=== PATIENT | male | born 1975 | race Caucasian/White ===

== ENCOUNTER 2017-02-24 21:56 | Emergency (ER) | payer SELFPAY ==
[2017-02-24 22:06] VITALS: BP 122/85; PULSE 101; RESP 16; TEMP 98.4; O2SAT 95
--- NOTE | 2017-02-24 22:11 | EDPHY ---
H & P Stated Complaint: PARANOIA HPI/ROS: HPI CHIEF COMPLAINT: Anxiety and stress HISTORY OF PRESENT ILLNESS: This patient is a 41 y.o. old male he is otherwise healthy with no significant medical history does not have any significant medical history does not take any daily medications. No history of mental illness. Denies depression, denies want hurt himself or anybody else. He states been going through a lot of stress and anxiety recently. He states that he has had a lot of events in his life that been causing him anxiety and stress. He has been trying to cope with them. After long discussion with his mom decided come to the emergency room to have mental health resources. He again does not want harm himself or anybody else. He does not appear acutely psychotic. He is calm and cooperative. Past Medical History: No significant medical history Past Surgical History: No significant surgical history Social History: Lives locally denies drugs alcohol tobacco. Occasional marijuana Family History: Noncontributory ROS REVIEW OF SYSTEMS: A comprehensive 10 point review of systems is otherwise negative aside from elements mentioned in the history of present illness. Exam Constitutional appears well nontoxic no acute distress triage nursing summary reviewed, vital signs reviewed, awake/alert. Eyes normal conjunctivae and sclera, EOMI, PERRLA. HENT normal inspection, atraumatic, moist mucus membranes, no epistaxis, neck supple/ no meningismus, no raccoon eyes. Respiratory clear to auscultation bilaterally, normal breath sounds, no respiratory distress, no wheezing. Cardiovascular rate normal, regular rhythm, no murmur, no edema, distal pulses normal. Gastrointestinal soft, non-tender, no rebound, no guarding, normal bowel sounds, no distension, no pulsatile mass. Genitourinary no CVA tenderness. Musculoskeletal no midline vertebral tenderness, full range of motion, no calf swelling, no tenderness of extremities, no meningismus, good pulses, neurovascularly intact. Skin pink, warm, & dry, no rash, skin atraumatic. Neurologic awake, alert and oriented x 3, AAOx3, moves all 4 extremities equally, motor intact, sensory intact, CN II-XII intact, normal cerebellar, normal vision, normal speech. Psychiatric normal mood/affect. Heme/Lymph/Immune no lymphadenopathy. Differential Diagnosis: Includes but is not limited to in a particular order acute anxiety, acute stress, mood disorder, bipolar, depression Medical Decision Making: Plan for this patient will have mental health give the patient resources, I do not feel that he needs an M1 hold. He does not want to threaten anybody or himself. He is calm and cooperative. Re-evaluation: Source: Patient - Personal History Current Tetanus Diphtheria and Acellular Pertussis (TDAP): Unsure - Medical/Surgical History Hx Asthma: No Hx Chronic Respiratory Disease: No Hx Diabetes: No Hx Cardiac Disease: No Hx Renal Disease: No Hx Cirrhosis: No Hx Alcoholism: No Hx HIV/AIDS: No Hx Splenectomy or Spleen Trauma: No Other PMH: HERNIA INGUINAL GABRIEL - Social History Smoking Status: Former smoker Constitutional: Initial Vital Signs Temperature (C) 36.9 C 02/24/17 22:04 Heart Rate 101 H 02/24/17 22:04 Respiratory Rate 16 02/24/17 22:04 Blood Pressure 122/85 H 02/24/17 22:04 O2 Sat (%) 95 02/24/17 22:04 O2 Delivery Mode Room Air Allergies/Adverse Reactions: No Known Allergies Allergy (Unverified 02/24/17 22:02) Departure - Departure Disposition: Home, Routine, Self-Care Clinical Impression: Anxiety Condition: Good Instructions: Anxiety (ED) Additional Instructions: 1. Follow up with resources you were given. 2. Return to the emergency room if you have any thoughts of wanting to harm herself or anybody else. Referrals: [facility] [Other] - As per Instructions
== END 2017-02-24 23:10 | disposition home or self-care (01) ==
DX: F41.9 Anxiety disorder, unspecified (principal); Z87.891 Personal history of nicotine dependence

== ENCOUNTER 2017-04-03 12:07 | Emergency (ER) | payer OTHER ==
[2017-04-03 12:19] VITALS: RESP 16; TEMP 98.1
--- NOTE | 2017-04-03 13:29 | EDPHY ---
H & P Time Seen by Provider: 04/03/17 13:13 HPI/ROS: CHIEF COMPLAINT: Blood in stool HISTORY OF PRESENT ILLNESS: Patient today had a bowel movement and then noticed bright red blood on toilet paper. It 3 separate episodes today. Not associated with melena or nausea vomiting or bleeding or bruising anywhere else. No rectal pain. Not lightheaded or dizzy. Not short of breath. REVIEW OF SYSTEMS: Eye: no change in vision ENT: no sore throat Cardiac: no chest pain or syncope Pulmonary: no cough or SOB Abdomen: no vomiting, diarrhea, abdominal pain Musculoskeletal: no back pain Skin: no rash Neuro: no headache Constitutional: no fever : no urinary symptoms A comprehensive 10 point review of systems is otherwise negative aside from elements mentioned in the history of present illness. PAST MEDICAL HISTORY: Hernia Social history: Former smoker General Appearance: Alert and conversant, cooperative. Gastrointestinal: Abdomen is soft and non tender. Neurological: Alert, face symmetric, normal motor and sensory in extremities. Skin: Warm and dry, no rashes. No bruising or ecchymoses. Rectal exam: With anoscope shows inflamed slightly bleeding hemorrhoid on the left side., no blood proximal to the tip of the scope. Emergency Department course/MDM: Acutely inflamed and bleeding internal hemorrhoid without evidence clinically of severe anemia or acute GI bleed or coagulopathy Smoking Status: Former smoker Constitutional: Initial Vital Signs Temperature (C) 36.7 C 04/03/17 12:17 Heart Rate 72 04/03/17 12:17 Respiratory Rate 16 04/03/17 12:17 Blood Pressure 106/55 L 04/03/17 12:17 O2 Sat (%) 97 04/03/17 12:17 O2 Delivery Mode Room Air Allergies/Adverse Reactions: No Known Allergies Allergy (Verified 04/03/17 12:16) Home Medications: Medication Instructions Recorded NK [No Known Home Meds] 04/03/17 Departure - Departure Disposition: Home, Routine, Self-Care Clinical Impression: Hemorrhoids, internal, with bleeding Condition: Good Instructions: Hemorrhoids (ED) Additional Instructions: Increase oral fluids, stool softeners as discussed. Return for worsening or severe bleeding. Referrals: Kevin Polk MD [Medical Doctor] - 3-4 days, if not improved
[2017-04-03 13:40] VITALS: BP 107/71; PULSE 58; O2SAT 95
== END 2017-04-03 13:39 | disposition home or self-care (01) ==
DX: K64.8 Other hemorrhoids (principal); Z87.891 Personal history of nicotine dependence